=== PATIENT | male | born 1950 | race Two or more races ===

== ENCOUNTER 2020-05-12 10:06 | Outpatient (CLI) | payer OTHER | END 2020-05-12 10:14 | disposition home or self-care (01) | LOC: RAD 10:06 | DX: R05 Cough (principal) ==

== ENCOUNTER → 2020-07-31 | Outpatient (CLI) | payer OTHER | END | disposition home or self-care (01) | LOC: TOM 10:44 | PROVIDERS: ATTEND Otolaryngology Plastic Surgery within the Head & Neck | DX: J32.4 Chronic pansinusitis (principal) ==

== ENCOUNTER 2020-08-25 09:48 | Outpatient (CLI) | payer OTHER | END 2020-08-25 15:00 | disposition home or self-care (01) | LOC: PPH VACUNA 09:48 | DX: Z23 Encounter for immunization (principal) ==

== ENCOUNTER 2020-09-15 11:11 | Outpatient (CLI) | payer OTHER | END 2020-09-15 16:13 | disposition home or self-care (01) | LOC: PPH VACUNA 11:11 | PROVIDERS: ATTEND Emergency Medicine Pediatric Emergency Medicine | DX: Z23 Encounter for immunization (principal) ==

== ENCOUNTER 2021-10-11 09:02 | Outpatient (CLI) | payer OTHER | END 2021-10-11 09:40 | disposition home or self-care (01) | LOC: ASH CLINIC 09:02 | PROVIDERS: ATTEND General Practice | DX: U07.1 COVID-19 (principal); Z23 Encounter for immunization ==

== ENCOUNTER 2022-06-01 14:03 | Outpatient (CLI) | payer OTHER | END 2022-06-01 14:08 | disposition home or self-care (01) | LOC: PPH VACUNA 14:03 | PROVIDERS: ATTEND Emergency Medicine Pediatric Emergency Medicine | DX: Z23 Encounter for immunization (principal) | CPT/HCPCS: 90686; G0008 ==

== ENCOUNTER 2022-10-19 12:32 | Emergency (ER) | payer OTHER ==
[~2022-10-19] VITALS: Ht 175.3 cm; Wt 77.1 kg
[2022-10-19] MEDS ORDERED: ALTACE5 MG (12:44)
[2022-10-19] MEDS ORDERED: GLIPIZIDE XL10 MG (12:44)
[2022-10-19] MEDS ORDERED: SIMVASTATIN5 MG PO (12:44)
[2022-10-19] MEDS ORDERED: ECOTRIN81 MG (12:44)
== END 2022-10-19 16:44 ==
LOC: ER 12:32
DX: R42 Dizziness and giddiness (principal)

== ENCOUNTER 2023-08-29 02:30 | Outpatient (CLI) | payer OTHER ==
[~2023-08-29 02:30] MED LIST: ALTACE5 MG; ECOTRIN81 MG; GLIPIZIDE XL10 MG; SIMVASTATIN5 MG PO
== END 2023-08-29 02:40 | disposition home or self-care (01) ==
LOC: PPH VACUNA 02:30
PROVIDERS: ATTEND Emergency Medicine Pediatric Emergency Medicine
DX: Z23 Encounter for immunization (principal)
CPT/HCPCS: 90686; G0008

== ENCOUNTER 2024-04-23 13:59 | Outpatient (CLI) | payer OTHER | END 2024-04-23 14:00 | disposition home or self-care (01) | LOC: NUCLEAR 13:59 | PROVIDERS: ATTEND Orthopaedic Surgery | DX: M81.0 Age-related osteoporosis without current pathological fracture (principal) ==

== ENCOUNTER 2024-04-23 14:29 | Outpatient (CLI) | payer OTHER | END 2024-04-23 14:34 | disposition home or self-care (01) | LOC: RAD 14:29 | PROVIDERS: ATTEND Orthopaedic Surgery | DX: M19.011 Primary osteoarthritis, right shoulder (principal); M19.012 Primary osteoarthritis, left shoulder ==

== ENCOUNTER 2024-11-13 11:19 | Outpatient (CLI) | payer OTHER ==
[2024-11-13 12:14] LABS: CREATININE SERUM 1.31 mg/dL (0.70-1.30)
== END 2024-11-13 11:20 | disposition home or self-care (01) ==
LOC: LAB 11:19
PROVIDERS: ATTEND Radiology Diagnostic Radiology
DX: K57.92 Diverticulitis of intestine, part unspecified, without perforation or abscess without bleeding (principal)

== ENCOUNTER 2024-11-14 08:52 | Outpatient (CLI) | payer OTHER | END 2024-11-14 09:02 | disposition home or self-care (01) | LOC: TOM 08:52 | PROVIDERS: ATTEND Internal Medicine | DX: K57.92 Diverticulitis of intestine, part unspecified, without perforation or abscess without bleeding (principal) | CPT/HCPCS: 74177; Q9965 ==

== ENCOUNTER 2025-05-09 09:57 | Outpatient (CLI) | payer OTHER ==
[2025-05-09 11:20] LABS: BASO % 0.2 % (0.1-1.2); EOS # 0.10 (0.04-0.54); EOS % 1.1 % (0.7-7.0); LYMPH # 1.81 (1.18-3.74); LYMPH % 19.9 % (19.3-53.1); MEAN PLATELET VOLUME 10.50 fl (9.4-12.4); MONO # 0.58 (0.24-0.82); MONO % 6.4 % (4.7-12.5); NEUT # 6.58 (1.56-6.13); NEUT % 72.2 % (34.0-71.1); RED CELL DISTRIBUTION WIDTH 14.9 % (11.6-14.4)
[2025-05-09 12:14] LABS: ALT/SGPT 40.0 U/L (12-78); AST/SGOT 24.0 U/L (15-37); BILIRUBIN TOTAL 0.33 mg/dL (0.3-1.2); BUN CREA RATIO 22.0 (7.0-25.0); CREATININE SERUM 1.26 mg/dL (0.70-1.30); GFR 55.64; GLOBULINA 4.1 G/DL (2.4-3.5); OSMOLALITY SERUM 291.0 MOSM/KG (275-295)
[2025-05-09 12:15] LABS: GLUCOSE FASTING 206.0 mg/dL (65-100)
== END 2025-05-09 23:00 | disposition home or self-care (01) ==
LOC: LAB 09:57
PROVIDERS: ATTEND Emergency Medicine Pediatric Emergency Medicine
DX: D68.9 Coagulation defect, unspecified (principal)